=== PATIENT | female | born 1965 | race Caucasian/White ===

== ENCOUNTER → 2018-07-10 | Outpatient (CLI) | payer OTHER | LOC: M PLARAD 12:32 | DX: R91.8 Other nonspecific abnormal finding of lung field (principal) | CPT/HCPCS: 78815 ==

== ENCOUNTER → 2019-09-27 | Outpatient (REF) | payer OTHER ==
[2019-09-27 14:39] LABS: CHOLESTEROL RISK RATIO 5.125 (<5)
== END ==
LOC: M LAB REF 12:40
PROVIDERS: ATTEND Internal Medicine Cardiovascular Disease
DX: E78.00 Pure hypercholesterolemia, unspecified (principal); R06.02 Shortness of breath

== ENCOUNTER → 2020-03-06 | Outpatient (CLI) | payer OTHER | LOC: M LABSMTC 12:47 | PROVIDERS: ATTEND Family Medicine | DX: Z11.59 Encounter for screening for other viral diseases (principal) | CPT/HCPCS: C9803; U0003 ==

== ENCOUNTER → 2021-07-09 | Outpatient (REF) | payer OTHER | LOC: M LAB REF 16:20 | PROVIDERS: ATTEND Physician Assistant | DX: R11.2 Nausea with vomiting, unspecified (principal); J06.9 Acute upper respiratory infection, unspecified; Z20.828 Contact with and (suspected) exposure to other viral communicable diseases ==

== ENCOUNTER 2024-03-27 18:33 | Inpatient (IN) | payer BC ==
[~2024-03-27] VITALS: Ht 167.6 cm; Wt 76.4 kg
[2024-03-27] MEDS ORDERED: ROSU20TA61 PO (18:58)
[2024-03-27] MEDS ORDERED: CHLO125TA (18:58)
[2024-03-27] MEDS ORDERED: VALS1TAB67 PO (18:58)
[2024-03-27] MEDS ORDERED: AMLO1TAB24 PO (18:58)
[2024-03-27] MEDS ORDERED: METO1TAB7 PO (18:58)
[2024-03-27] MEDS ORDERED: ALBU8.5H INH (18:58)
[2024-03-27 19:35] LABS: BASO # 0.1 10^3/uL (0.0-0.2); BASO % 0.6 % (0.0-1.0); EOS # 0.2 10^3/uL (0.0-0.5); EOS % 1.9 % (0.0-3.0); HEMOGLOBIN 11.4 g/dl (12.0-15.5); LYMPH # 3.1 10^3/uL (1.5-5.0); LYMPH % 34.6 % (24.0-44.0); MEAN CORPUSCULAR HEMOGLOBIN 31.1 pg (27.0-33.0); MEAN CORPUSCULAR HGB CONC 33.5 g/dl (32.0-36.5); MEAN CORPUSCULAR VOLUME 92.9 fl (80.0-96.0); MONO # 0.7 10^3/uL (0.0-0.8); MONO % 8.2 % (2.0-8.0); NEUTROPHILS # 4.9 10^3/uL (1.5-8.5); NEUTROPHILS % 54.5 % (36.0-66.0); PLATELET COUNT, AUTOMATED 301 10^3/uL (150-450); RED BLOOD COUNT 3.66 10^6/uL (4.00-5.40); WHITE BLOOD COUNT 8.9 10^3/uL (4.0-10.0)
[2024-03-27 20:07] LABS: BLOOD UREA NITROGEN 75 MG/DL (9-23); CALCIUM LEVEL 8.8 MG/DL (8.5-10.1); CARBON DIOXIDE LEVEL 20 MMOL/L (20-31); CHLORIDE LEVEL 113 MMOL/L (98-107); CREATININE FOR GFR 4.36 MG/DL (0.55-1.30); GLOMERULAR FILTRATION RATE 11.1 (>51); GLUCOSE, FASTING 90 MG/DL (60-100); POTASSIUM SERUM 5.4 MMOL/L (3.5-5.1); SODIUM LEVEL 141 MMOL/L (136-145)
[2024-03-27] MEDS: NS 1,000 ML IV SCH (20:45)
[2024-03-27] MEDS: PATIROMER SORBITEX CALCIUM 8.4 GM POWDER PACKET (VELTASSA) PO ONE (20:45)
[2024-03-27 20:52] LABS: ALBUMIN 3.5 G/DL (3.2-5.2); ALKALINE PHOSPHATASE 75 U/L (46-116); ALT/SGPT 15 U/L (7.0-40); AST/SGOT 13 U/L (<34); BILIRUBIN,DIRECT < 0.1 MG/DL (<0.4); BILIRUBIN,TOTAL 0.2 MG/DL (0.3-1.2); MAGNESIUM LEVEL 2.1 MG/DL (1.8-2.4)
[2024-03-27] MEDS: **hydrALAZINE HCL** 25 MG TAB PO ONE (21:56)
[2024-03-27 22:09] LABS: TOTAL PROTEIN,RANDOM URINE 160.8 MG/DL (0.0-14.0)
[2024-03-27] MEDS ORDERED: HOME MED LIST COMPLETE! XX SCH (22:50)
[2024-03-27 23:19] LABS: URIC ACID 7.4 MG/DL (3.1-7.8)
[2024-03-28] MEDS ORDERED: ACETAMINOPHEN TAB 650MG DOSE (2X325MG) PO PRN (01:55)
[2024-03-28] MEDS: NS 1,000 ML IV SCH (02:40)
[2024-03-28 03:22] LABS: BASO % 0.4 % (0.0-1.0); EOS # 0.2 10^3/uL (0.0-0.5); HEMATOCRIT 31.3 % (36.0-47.0); HEMOGLOBIN 10.4 g/dl (12.0-15.5); LYMPH # 2.7 10^3/uL (1.5-5.0); LYMPH % 33.6 % (24.0-44.0); MEAN CORPUSCULAR HEMOGLOBIN 30.9 pg (27.0-33.0); MEAN CORPUSCULAR HGB CONC 33.2 g/dl (32.0-36.5); MEAN CORPUSCULAR VOLUME 92.9 fl (80.0-96.0); MONO # 0.7 10^3/uL (0.0-0.8); MONO % 8.3 % (2.0-8.0); NEUTROPHILS # 4.5 10^3/uL (1.5-8.5); NEUTROPHILS % 55.5 % (36.0-66.0); PLATELET COUNT, AUTOMATED 252 10^3/uL (150-450); RED BLOOD COUNT 3.37 10^6/uL (4.00-5.40); WHITE BLOOD COUNT 8.2 10^3/uL (4.0-10.0)
[2024-03-28 03:54] LABS: FREE T4 0.84 NG/DL (0.89-1.76); THYROID STIMULATING HORMONE 2.299 uIU/ML (0.55-4.78)
[2024-03-28 03:56] LABS: CALCIUM LEVEL 8.4 MG/DL (8.5-10.1); CREATININE FOR GFR 3.97 MG/DL (0.55-1.30); GLOMERULAR FILTRATION RATE 12.3 (>51); MAGNESIUM LEVEL 1.9 MG/DL (1.8-2.4); POTASSIUM SERUM 4.3 MMOL/L (3.5-5.1)
[2024-03-28] MEDS: ALBUTEROL 90 MCG/ACT 8GM HFA INHALER INH SCH (07:21)
[2024-03-28] MEDS: DOCUSATE SODIUM 100MG CAPSULE PO SCH (07:45)
[2024-03-28] MEDS: METOPROLOL SUCC (TopROL XL) 50MG **XL** TAB PO SCH (07:49)
[2024-03-28 07:59] LABS: MYOGLOBIN SCREEN, URINE POSITIVE (NEGATIVE)
[2024-03-28] MEDS ORDERED: amLODIPine 5 MG TAB PO SCH (09:00)
[2024-03-28 11:37] LABS: PERCENT SATURATION 25.8 % (13.2-45.0)
[2024-03-28 11:41] LABS: FERRITIN 144.6 NG/ML (7.3-270.7)
[2024-03-28 11:43] LABS: FOLATE 13.05 NG/ML (>5.4)
[2024-03-28] MEDS: cefTRIAXone SOD 1 GM in D5W MINI-BAG PLUS 50 ML IV SCH (11:56)
[2024-03-28] MEDS: SODIUM BICARBONATE 75 MEQ in NS 0.45% 1,000 ML IV SCH (13:23)
[2024-03-28] MEDS: NICOTINE 21MG/24HR 1 EA TRANSDERMAL TD SCH (15:59)
[2024-03-28] MEDS: ROSUVASTATIN 10 MG TAB (CRESTOR) PO SCH (21:06)
[2024-03-28 21:07] VITALS: BP 135/75; TEMP 98.1; O2SAT 97
[2024-03-29 04:35] VITALS: BP 154/91; TEMP 98.1; O2SAT 97
[2024-03-29 07:19] LABS: BASO % 0.6 % (0.0-1.0); EOS # 0.1 10^3/uL (0.0-0.5); EOS % 1.9 % (0.0-3.0); HEMATOCRIT 29.7 % (36.0-47.0); HEMOGLOBIN 10.2 g/dl (12.0-15.5); LYMPH # 2.4 10^3/uL (1.5-5.0); LYMPH % 38.7 % (24.0-44.0); MEAN CORPUSCULAR HEMOGLOBIN 31.3 pg (27.0-33.0); MEAN CORPUSCULAR HGB CONC 34.3 g/dl (32.0-36.5); MEAN CORPUSCULAR VOLUME 91.1 fl (80.0-96.0); MONO # 0.6 10^3/uL (0.0-0.8); MONO % 8.9 % (2.0-8.0); NEUTROPHILS # 3.1 10^3/uL (1.5-8.5); NEUTROPHILS % 49.7 % (36.0-66.0); PLATELET COUNT, AUTOMATED 258 10^3/uL (150-450); RED BLOOD COUNT 3.26 10^6/uL (4.00-5.40); WHITE BLOOD COUNT 6.2 10^3/uL (4.0-10.0)
[2024-03-29 07:42] LABS: ALBUMIN 2.9 G/DL (3.2-5.2); CALCIUM LEVEL 8.4 MG/DL (8.5-10.1); CHOLESTEROL RISK RATIO 3.86 (<5); CREATININE FOR GFR 3.6 MG/DL (0.55-1.30); GLOMERULAR FILTRATION RATE 13.8 (>51); HDL CHOLESTEROL 31.3 MG/DL (>40); LDL CHOLESTEROL 62.1 MG/DL (<100); MAGNESIUM LEVEL 1.7 MG/DL (1.8-2.4); NON-HDL-C 89.7 MG/DL; PHOSPHORUS LEVEL 5.1 MG/DL (2.5-4.9); POTASSIUM SERUM 4.3 MMOL/L (3.5-5.1)
[2024-03-29 07:56] LABS: HEMOGLOBIN A1c 5.8 % (4.0-6.0)
[2024-03-29 10:24] VITALS: BP 138/80
[2024-03-29] MEDS: **hydrALAZINE HCL** 25 MG TAB PO ONE (10:52)
[2024-03-29 12:34] VITALS: BP 140/82; TEMP 98; O2SAT 100
[2024-03-29 20:00] VITALS: BP 151/85; TEMP 97.7; O2SAT 99
[2024-03-29] MEDS: **hydrALAZINE HCL** 25 MG TAB PO SCH (20:52)
[2024-03-30 04:00] VITALS: BP 151/86; TEMP 97.5; O2SAT 96
[2024-03-30 07:08] LABS: BASO % 0.5 % (0.0-1.0); EOS # 0.1 10^3/uL (0.0-0.5); EOS % 1.9 % (0.0-3.0); HEMATOCRIT 32.2 % (36.0-47.0); HEMOGLOBIN 11.1 g/dl (12.0-15.5); LYMPH # 2.3 10^3/uL (1.5-5.0); LYMPH % 36.4 % (24.0-44.0); MEAN CORPUSCULAR HEMOGLOBIN 30.7 pg (27.0-33.0); MEAN CORPUSCULAR HGB CONC 34.5 g/dl (32.0-36.5); MONO # 0.6 10^3/uL (0.0-0.8); MONO % 9.8 % (2.0-8.0); NEUTROPHILS # 3.2 10^3/uL (1.5-8.5); NEUTROPHILS % 51.1 % (36.0-66.0); PLATELET COUNT, AUTOMATED 257 10^3/uL (150-450); RED BLOOD COUNT 3.62 10^6/uL (4.00-5.40); WHITE BLOOD COUNT 6.2 10^3/uL (4.0-10.0)
[2024-03-30 07:33] LABS: ALBUMIN 2.8 G/DL (3.2-5.2); CALCIUM LEVEL 8.4 MG/DL (8.5-10.1); CREATININE FOR GFR 3.13 MG/DL (0.55-1.30); GLOMERULAR FILTRATION RATE 16.2 (>51); MAGNESIUM LEVEL 1.5 MG/DL (1.8-2.4); PHOSPHORUS LEVEL 4.6 MG/DL (2.5-4.9); POTASSIUM SERUM 4.1 MMOL/L (3.5-5.1)
[2024-03-30 08:00] VITALS: BP 173/93; TEMP 97.7; O2SAT 94
[2024-03-30 08:58] VITALS: BP 167/91
[2024-03-30] MEDS: METOPROLOL SUCC *XL* 25MG TAB (TopROL *XL*) PO SCH (08:58)
[2024-03-30] MEDS: MAG SULF 1GM/100ML (MAG RUN) 1 GM in IV 1 EA IV SCH (08:59)
[2024-03-30] MEDS ORDERED: METO1TAB32 PO (13:10)
[2024-03-30] MEDS ORDERED: MAGN400T35 PO (13:10)
[2024-03-30] MEDS ORDERED: HYDR50TA46 PO (13:10)
[2024-03-30] MEDS ORDERED: AMLO1TAB25 PO (13:10)
[2024-03-30] MEDS ORDERED: CEFD1CAP9 PO (13:10)
[2024-03-30] MEDS ORDERED: **hydrALAZINE HCL** 25 MG TAB PO SCH (21:00)
== END 2024-03-30 13:55 | disposition home or self-care (01) | DRG 469 ==
LOC: M ED 18:33 → M ED INP 22:40 → M MS5PR 03-28 11:35
PROVIDERS: ADMIT Internal Medicine; ATTEND Internal Medicine
DX: N17.9 Acute kidney failure, unspecified (principal); E87.20 Acidosis, unspecified; E87.5 Hyperkalemia; I73.9 Peripheral vascular disease, unspecified; J44.9 Chronic obstructive pulmonary disease, unspecified; F17.210 Nicotine dependence, cigarettes, uncomplicated; I10 Essential (primary) hypertension; N39.0 Urinary tract infection, site not specified; Z88.2 Allergy status to sulfonamides; Z88.8 Allergy status to other drugs, medicaments and biological substances; Z79.899 Other long term (current) drug therapy; E86.0 Dehydration; R19.7 Diarrhea, unspecified; E78.5 Hyperlipidemia, unspecified; D63.1 Anemia in chronic kidney disease; N30.21 Other chronic cystitis with hematuria

== ENCOUNTER → 2024-03-27 | Outpatient (CLI) | payer BC ==
[~2024-03-27] MED LIST: ALBU8.5H INH; AMLO1TAB24 PO; CHLO125TA; METO1TAB7 PO; ROSU20TA61 PO; VALS1TAB67 PO
[2024-03-27 14:01] LABS: ALBUMIN 3.6 G/DL (3.2-5.2); BILIRUBIN,TOTAL 0.2 MG/DL (0.3-1.2); CALCIUM LEVEL 9.3 MG/DL (8.5-10.1); CHOLESTEROL RISK RATIO 3.55 (<5); CREATININE FOR GFR 4.5 MG/DL (0.55-1.30); GLOMERULAR FILTRATION RATE 10.7 (>51); HDL CHOLESTEROL 39.4 MG/DL (>40); LDL CHOLESTEROL 80.2 MG/DL (<100); NON-HDL-C 100.6 MG/DL; POTASSIUM SERUM 4.8 MMOL/L (3.5-5.1)
== END ==
LOC: M LAB 11:49
PROVIDERS: ATTEND Physician Assistant
DX: I10 Essential (primary) hypertension (principal); E78.00 Pure hypercholesterolemia, unspecified

== ENCOUNTER → 2024-03-27 | Outpatient (CLI) | payer BC ==
[2024-03-27 13:26] LABS: BASO % 0.5 % (0.0-1.0); EOS # 0.1 10^3/uL (0.0-0.5); EOS % 1.3 % (0.0-3.0); HEMATOCRIT 35.4 % (36.0-47.0); HEMOGLOBIN 11.8 g/dl (12.0-15.5); LYMPH # 2.1 10^3/uL (1.5-5.0); LYMPH % 23.5 % (24.0-44.0); MEAN CORPUSCULAR HEMOGLOBIN 31.2 pg (27.0-33.0); MEAN CORPUSCULAR HGB CONC 33.3 g/dl (32.0-36.5); MEAN CORPUSCULAR VOLUME 93.7 fl (80.0-96.0); MONO # 0.5 10^3/uL (0.0-0.8); MONO % 5.6 % (2.0-8.0); NEUTROPHILS % 68.9 % (36.0-66.0); PLATELET COUNT, AUTOMATED 306 10^3/uL (150-450); RED BLOOD COUNT 3.78 10^6/uL (4.00-5.40); WHITE BLOOD COUNT 8.7 10^3/uL (4.0-10.0)
[2024-03-27 13:41] LABS: HEMOGLOBIN A1c 5.7 % (4.0-6.0)
[2024-03-27 14:03] LABS: FREE T4 0.91 NG/DL (0.89-1.76)
[2024-03-27 14:04] LABS: FERRITIN 173.1 NG/ML (7.3-270.7); THYROID STIMULATING HORMONE 2.062 uIU/ML (0.55-4.78)
[2024-03-27 14:07] LABS: ALBUMIN 3.5 G/DL (3.2-5.2); BILIRUBIN,TOTAL 0.2 MG/DL (0.3-1.2); CALCIUM LEVEL 9.2 MG/DL (8.5-10.1); CREATININE FOR GFR 4.47 MG/DL (0.55-1.30); GLOMERULAR FILTRATION RATE 10.8 (>51); PERCENT SATURATION 31.7 % (13.2-45.0); POTASSIUM SERUM 5.3 MMOL/L (3.5-5.1); TOTAL PROTEIN 7.1 G/DL (5.7-8.2)
== END ==
LOC: M LAB 11:46
PROVIDERS: ATTEND Nurse Practitioner Adult Health
DX: Z00.8 Encounter for other general examination (principal); E78.5 Hyperlipidemia, unspecified; F41.9 Anxiety disorder, unspecified; I73.9 Peripheral vascular disease, unspecified; R07.9 Chest pain, unspecified; I10 Essential (primary) hypertension

== ENCOUNTER → 2024-04-10 | Outpatient (REF) | payer BC ==
[~2024-04-10] MED LIST changes: +AMLO1TAB25 PO; +CEFD1CAP9 PO; +HYDR50TA46 PO; +MAGN400T35 PO; +METO1TAB32 PO
== END ==
LOC: M LAB REF 12:56
PROVIDERS: ATTEND Physician Assistant
DX: I10 Essential (primary) hypertension (principal); E78.00 Pure hypercholesterolemia, unspecified

== ENCOUNTER → 2024-04-15 | Outpatient (CLI) | payer BC ==
[2024-04-15 10:45] LABS: CALCIUM LEVEL 8.7 MG/DL (8.5-10.1); CREATININE FOR GFR 4.53 MG/DL (0.55-1.30); GLOMERULAR FILTRATION RATE 10.6 (>51); POTASSIUM SERUM 5.7 MMOL/L (3.5-5.1)
== END ==
LOC: M LAB 09:40
PROVIDERS: ATTEND Internal Medicine
DX: N18.9 Chronic kidney disease, unspecified (principal)

== ENCOUNTER → 2024-06-27 | Outpatient (REF) | payer BC ==
[2024-06-29 17:26] LABS: HEPATITIS B CORE ANTIBODY IGM NEGATIVE (NEGATIVE); HEPATITIS B SURFACE ANTIGEN NEGATIVE (NEGATIVE); HEPATITIS C VIRUS ABY INDEX < 0.02 INDEX (<0.8)
== END ==
LOC: M LAB REF 17:43
PROVIDERS: ATTEND Internal Medicine Nephrology
DX: N18.5 Chronic kidney disease, stage 5 (principal); I12.9 Hypertensive chronic kidney disease with stage 1 through stage 4 chronic kidney disease, or unspecified chronic kidney disease

== ENCOUNTER → 2024-07-02 | Outpatient (REF) | payer BC | LOC: M LAB REF 17:14 | PROVIDERS: ATTEND Internal Medicine Nephrology | DX: N18.5 Chronic kidney disease, stage 5 (principal) ==